=== PATIENT | female | born 1985 | race Caucasian/White ===

== ENCOUNTER 2023-06-19 16:14 | Emergency (ER) | payer BC, SELFPAY ==
[2023-06-19 16:16] VITALS: BP 131/88; PULSE 111; RESP 16; TEMP 36.5; O2SAT 99; BMI 21.9
--- NOTE | 2023-06-19 16:42 | EKG12_ITS ---
Test Reason : Blood Pressure : / mmHG Vent. Rate : 105 BPM Atrial Rate : 105 BPM P-R Int : 150 ms QRS Dur : 080 ms QT Int : 362 ms P-R-T Axes : 061 081 -76 degrees QTc Int : [address] & T wave abnormality, consider inferior ischemia ST & T wave abnormality, consider anterolateral ischemia Abnormal ECG Confirmed by MARCUS PALOMARES, MORGAN ([id number]), deputy editor in chief CLINT SUNSHINE ([id number]) on 06/20/2023 9:47:19 AM Referred By: Confirmed By:MORGAN VELAZQUEZ MD
--- NOTE | 2023-06-19 16:46 | ED.RN ---
per spouse pt started zoloft roughly 3mo ago and did not help. we had a consult and the increased her zoloft and it seemed to help. but when he has pms she gets worse. our marriage has not been good, today we broke up. per pt it was a mutual breakup. after the break up today she became SI.
--- NOTE | 2023-06-19 16:54 | EDS_ITS ---
HPI <NAMAN Molina - Last Filed: 06/19/23 21:06> HPI - Psych History of Present Illness Chief Complaint: Mental Health Narrative Narrative: Patient presenting today due to a suicide attempt that occurred about 30 minutes prior to arrival. She reports that she took 12 Zoloft, 12 ibuprofen, 10 namebrand Zyrtec, and 7 or 8 cetirizine. She reports that she feels a little dizzy and has slight epigastric abdominal pain. She reports that she is from [place] and followed her to the [facility], her is now potentially cheating on her with his ex- and wants to get a divorce. She reports that she has nothing to live for and wants to . Patient began crying and begging, please just let me . She reports a previous suicide attempt when she was 21, she does have a PMH of depression. She denies any substance use or homicidal ideation. PFSH <NAMAN Molina - Last Filed: 06/19/23 21:06> PFSH Medical History Anxiety Depression Home Medications sertraline 100 mg tablet (Zoloft) 100 mg PO DAILY 06/19/23 [History Last Taken Unknown] Allergy/AdvReac Type Severity Reaction Status Date / Time No Known Allergies Allergy Verified 06/19/23 17:05 Family History no significant family his Surgical History H/O breast augmentation History of nasal surgery Social History household members: spouse and children housing: house Smoking Status: Never smoker ROS <NAMAN Molina - Last Filed: 06/19/23 21:06> ROS ED Constitutional Constitutional ED: Denies chills or fever(s) Eyes Eyes: Denies blurry vision Cardiovascular Cardiovascular: Denies chest pain or palpitations Respiratory/Chest Respiratory/Chest: Denies cough or dyspnea Gastrointestinal Gastrointestinal: Reports abdominal pain; Denies nausea or vomiting Musculoskeletal Musculoskeletal: Denies arthralgias or myalgias Integumentary Denies Abrasions or rash Neurologic Neurologic: Denies weakness Psychiatric Psychiatric: Reports depression, hopelessness, suicidal ideation and suicidal thoughts; Denies hallucinations or homicidal ideation EXAM <NAMAN Molina - Last Filed: 06/19/23 21:06> Physical Exam Const Vital Signs: 06/19/23 16:16 06/19/23 17:15 06/19/23 18:00 Temperature 97.7 F L Temperature Source Temporal Pulse Rate 111 H 101 H 64 Respiratory Rate 16 18 14 Blood Pressure 131/88 H 149/92 H 128/78 H Blood Pressure Mean 102 111 94 Pulse Ox 99 100 97 Oxygen Delivery Method Room Air Room Air Positive well nourished, well developed and no apparent distress General Appearance ED: well developed HEENT Reports normocephalic and head/scalp atraumatic Mouth ED: Yes moist mucous membranes normal Eyes PERRL and EOMs intact bilaterally Neck full ROM and supple Chest Wall inspection of chest normal Resp normal respiratory effort and clear to auscultation bilaterally Cardio regular rate and regular rhythm GI soft to palpation, non-tender, non-distended and no masses Back/Spine normal ROM and normal to inspection Extremity normal to inspection and full ROM Neuro oriented x3, CN's II-XII intact bilaterally, moves all extremities, no focal motor deficits and no sensory deficits noted Sensorium / Orientation: awake and alert Psych cooperative, denies hallucinations and denies homicidal ideation Appearance: grossly normal and well kempt Mood & Affect: depressed, sad and tearful Thought Process: normal thought process Thought Content: suicidality Attention / Concentration: attention grossly intact Insight: poor Judgement: poor Skin no rashes or lesions noted and no wounds <Dr. Remington Hess DO - Last Filed: 06/19/23 21:17> Physical Exam Const Vital Signs: 06/19/23 16:16 06/19/23 17:15 06/19/23 18:00 Temperature 97.7 F L Temperature Source Temporal Pulse Rate 111 H 101 H 64 Respiratory Rate 16 18 14 Blood Pressure 131/88 H 149/92 H 128/78 H Blood Pressure Mean 102 111 94 Pulse Ox 99 100 97 Oxygen Delivery Method Room Air Room Air MDM <NAMAN Molina - Last Filed: 06/19/23 21:06> MDM MDM Narrative Medical decision making narrative: Patient presenting due to suicide attempt that occurred this afternoon. She took multiple pills of Zoloft, Zyrtec, and ibuprofen. She is tearful and is making to just let her . She reports she has nothing to live for. She has been fighting with her , she denies feeling unsafe or any abuse in the relationship. Her wants to get a divorce. I did talk with poison control, they recommend administering a dose of activated charcoal which patient is agreeable with. They recommend observation, we will obtain labs and crisis will evaluate patient. Her CBC is unremarkable, BMP shows a potassium of 3.2, creatinine 1.24, salicylate and acetaminophen levels unremarkable. Negative urine toxicology screen. Patient pink slipped, she was evaluated by crisis who recommended placement. This patient was seen with a PA/KNITTING MACHINE OPERATOR AUTOMATIC Individually assessed they patient including history and physical. I have reviewed everything on the chart that is available and agree with the documentation provided by the PA/KNITTING MACHINE OPERATOR AUTOMATIC including discussion about the assessment, treatment plan, discussion, and return precautions. 38-year-old female presenting with suicide attempt. She attempted to ingest 12 Zoloft, 12 ibuprofen, 10 Zyrtec, and 7 or 8 cetirizine. Discussed with poison control and they recommended activated carpal patient was given this. Screening lab work was obtained and patient is medically cleared. hCG negative. Salic ylates negative. Acetaminophen negative. EtOH negative. Drug screen negative. Lab Data Attestation: I reviewed the patient's lab results. Labs: Laboratory Results - last 24 hr 06/19/23 06/19/23 16:44 17:50 WBC 9.6 RBC 4.67 Hgb 14.5 Hct 41.9 MCV 89.7 MCH 31.0 MCHC 34.6 RDW Std Deviation 41.2 RDW Coeff of Geovanna 12.5 Plt Count 324 MPV 10.1 Immature Gran % (Auto) 0.200 Neut % (Auto) 67.4 Lymph % (Auto) 22.9 [place] % (Auto) 8.0 Eos % (Auto) 0.7 Baso % (Auto) 0.8 Absolute Neuts (auto) 6.4 Absolute Lymphs (auto) 2.19 Nucleated RBC % 0 Sodium 138 Potassium 3.2 L Chloride 110 H Carbon Dioxide 19.0 L Anion Gap 9 BUN 10 Creatinine 1.24 H Estim Creat Clear Calc 54.16 Est GFR (MDRD) Af Amer 63 Est GFR (MDRD) Non-Af 52 L BUN/Creatinine Ratio 8.1 L Glucose 100 Calcium 9.5 Serum , Qual NEGATIVE Salicylates < 1.7 L Urine Opiates Screen NEGATIVE Urine Methadone Screen NEGATIVE Acetaminophen < 2.0 L Ur Barbiturates Screen NEGATIVE Ur Phencyclidine Scrn NEGATIVE Ur Amphetamines Screen NEGATIVE MDMA (Ecstasy) Screen NEGATIVE U Benzodiazepines Scrn NEGATIVE Urine Cocaine Screen NEGATIVE U Cannabinoids Screen NEGATIVE Ur Drug Screen Comment Ethyl Alcohol 4.0 <Dr. Remington Hess, DO - Last Filed: 06/19/23 21:17> MDM MDM Narrative Medical decision making narrative: Patient presenting due to suicide attempt that occurred this afternoon. She took multiple pills of Zoloft, Zyrtec, and ibuprofen. She is tearful and is making to just let her . She reports she has nothing to live for. She has been fighting with her , she denies feeling unsafe or any abuse in the relationship. Her wants to get a divorce. I did talk with poison control, they recommend administering a dose of activated charcoal which patient is agreeable with. They recommend observation, we will obtain labs and crisis will evaluate patient. Her CBC is unremarkable, BMP shows a potassium of 3.2, creatinine 1.24, salicylate and acetaminophen levels unremarkable. Negative urine toxicology screen. Patient pink slipped, she was evaluated by crisis who recommended placement. This patient was seen with a PA/KNITTING MACHINE OPERATOR AUTOMATIC Individually assessed they patient including history and physical. I have reviewed everything on the chart that is available and agree with the documentation provided by the PA/KNITTING MACHINE OPERATOR AUTOMATIC including discussion about the assessment, treatment plan, discussion, and return precautions. 38-year-old female presenting with suicide attempt. She attempted to ingest 12 Zoloft, 12 ibuprofen, 10 Zyrtec, and 7 or 8 cetirizine. Discussed with poison control and they recommended activated carpal patient was given this. Screening lab work was obtained and patient is medically cleared. hCG negative. Salicylates negative. Acetaminophen negative. EtOH negative. Drug screen negative. Patient was seen by crisis and will be admitted. [place] slip was filled out. Patient will be transferred when a bed becomes available. Impression: 1. Depression 2. Suicide attempt 3. Drug ingestion Lab Data Labs: Laboratory Results - last 24 hr 06/19/23 06/19/23 16:44 17:50 WBC 9.6 RBC 4.67 Hgb 14.5 Hct 41.9 MCV 89.7 MCH 31.0 MCHC 34.6 RDW Std Deviation 41.2 RDW Coeff of Geovanna 12.5 Plt Count 324 MPV 10.1 Immature Gran % (Auto) 0.200 Neut % (Auto) 67.4 Lymph % (Auto) 22.9 [place] % (Auto) 8.0 Eos % (Auto) 0.7 Baso % (Auto) 0.8 Absolute Neuts (auto) 6.4 Absolute Lymphs (auto) 2.19 Nucleated RBC % 0 Sodium 138 Potassium 3.2 L Chloride 110 H Carbon Dioxide 19.0 L Anion Gap 9 BUN 10 Creatinine 1.24 H Estim Creat Clear Calc 54.16 Est GFR (MDRD) Af Amer 63 Est GFR (MDRD) Non-Af 52 L BUN/Creatinine Ratio 8.1 L Glucose 100 Calcium 9.5 Serum , Qual NEGATIVE Salicylates < 1.7 L Urine Opiates Screen NEGATIVE Urine Methadone Screen NEGATIVE Acetaminophen < 2.0 L Ur Barbiturates Screen NEGATIVE Ur Phencyclidine Scrn NEGATIVE Ur Amphetamines Screen NEGATIVE MDMA (Ecstasy) Screen NEGATIVE U Benzodiazepines Scrn NEGATIVE Urine Cocaine Screen NEGATIVE U Cannabinoids Screen NEGATIVE Ur Drug Screen Comment Ethyl Alcohol 4.0 Discharge Plan Triage Chief Complaint: Mental Health Other Complaint: Suicidal ED Midlevel Provider: Ember Nuñez ED Provider: Remington Hess Dx/Rx/DC Orders Clinical Impression: Suicide attempt by drug overdose, Depressed Prescriptions: No Action sertraline [Zoloft] 100 mg tablet 100 mg PO DAILY Primary Care Provider: Care Physician,No Primary Referrals: Care Physician,No Primary [Primary Care Provider] -
[2023-06-19] MEDS: Activated Charcoal 50 GM/240 ML BOT PO (17:00)
[2023-06-19 17:10] LABS: Absolute Lymphocyte Count 2.19 X10^3/uL (0.83-4.51); Absolute Neutrophil Count 6.4 X10^3/uL (2.0-7.7); Basophil# 0.08 X10^3/uL; Basophil% 0.8 % (0-1); Eosinophil# 0.07 X10^3/uL; Eosinophils% 0.7 % (0-5); Hematocrit 41.9 % (37-47); Hemoglobin 14.5 g/dL (12.0-15.0); Internal QC Validated? YES +Cl - CLEAR BKGD; Lymphocyte # 2.19 X10^3/ul (0.83-4.51); Lymphocyte % 22.9 % (19-41); Mean Corp Hgb Conc 34.6 g/dL (32-36); Mean Corpuscular Volume 89.7 fL (81-99); Mean Platelet Vol. 10.1 fl (6.2-12.0); Monocyte# 0.77 X10^3/uL; NRBC Flagged by Analyzer 0 % (0-5); Neutrophil # 6.44 X10^3/uL (2.7-7.7); Neutrophil % 67.4 % (47-70); Platelet Count 324 K/mm3 (150-450); Pregnancy, Serum, hCG Quali. NEGATIVE Negative; RBC Distribution Width CV 12.5 % (11.6-14.6); RBC Distribution Width SD 41.2 fl (35.1-43.9); Red Blood Count 4.67 M/mm3 (4.2-5.4); White Blood Count 9.6 K/mm3 (4.4-11.0)
[2023-06-19 17:11] LABS: Salicylate < 1.7 mg/dL (2.8-20.0)
[2023-06-19 17:12] LABS: Anion Gap 9 (5-15); BUN 10 mg/dL (7-18); BUN/Creat Ratio 8.1 RATIO (10-20); Calcium,Total 9.5 mg/dL (8.5-10.1); Chloride 110 mmol/L (98-107); Creatinine, Serum 1.24 mg/dL (0.55-1.02); EST Glomerular Filtration Rate 52 mL/min (>60); Est Glom Filt Rate - Afr Amer 63 mL/min (>60); Estimated Creatinine Clearance 54.16 ml/min; Glucose 100 mg/dL (74-106); Potassium 3.2 mmol/L (3.5-5.1); Sodium Level 138 mmol/L (136-145)
[2023-06-19 17:15] VITALS: BP 149/92; PULSE 101; RESP 18; O2SAT 100
--- NOTE | 2023-06-19 17:22 | ED.RN ---
WHILE THIS NURSE WAS DOING HER ASSESSMENT PATIENT STATED HE'S NOT A BACK MAN, HE'S JUST VERY SELFISH. I DON'T WANT TO LIVE IN A WORLD LIKE THIS WHERE I CAN JUST BE TOSSED IN THE TRASH. YOU CAN DO WHAT YOU DO TODAY, BUT I'LL JUST DO THIS AGAIN IN THE MIDDLE OF THE NIGHT SO NO ONE FINDS ME.
[2023-06-19 17:28] LABS: Acetaminophen (Tylenol) Level < 2.0 ug/mL (10.0-30.0)
[2023-06-19 18:00] VITALS: BP 128/78; PULSE 64; RESP 14; O2SAT 97
[2023-06-19 18:08] LABS: Amphetamine Urine VISTA NEGATIVE (<1000 ng/mL); Barbiturate Urine VISTA NEGATIVE (< 200 ng/mL); Benzodiazepine Urine VISTA NEGATIVE (< 200 ng/mL); Cocaine Urine VISTA NEGATIVE (< 300 ng/mL); Ecstacy Urine VISTA NEGATIVE (< 500 ng/mL); Methadone Urine VISTA NEGATIVE (< 300 ng/mL); PCP Urine VISTA NEGATIVE (< 25 ng/mL); THC Urine VISTA NEGATIVE (< 50 ng/mL); Vista UDS pH Range 6
--- NOTE | 2023-06-19 18:15 | ED.RN ---
[facility] CALLED, CHART FAXED. LAUREN FROM [facility] SAID 40 MIN. (APPROX [phone])
[2023-06-19 22:00] VITALS: BP 113/70; PULSE 117; RESP 19; O2SAT 100
[2023-06-19 22:57] LABS: Anion Gap 9 (5-15); BUN 10 mg/dL (7-18); Calcium,Total 8.7 mg/dL (8.5-10.1); Chloride 113 mmol/L (98-107); Creatinine, Serum 1.25 mg/dL (0.55-1.02); EST Glomerular Filtration Rate 51 mL/min (>60); Est Glom Filt Rate - Afr Amer 62 mL/min (>60); Estimated Creatinine Clearance 53.73 ml/min; Glucose 97 mg/dL (74-106); Potassium 3.1 mmol/L (3.5-5.1); Sodium Level 138 mmol/L (136-145)
[2023-06-19] MEDS: 0.9% Normal Saline (1000mL) 1,000 ML 999 ML IV (23:14)
[2023-06-19] MEDS: Potassium Chloride Oral Tablet 20 MEQ 40 MEQ PO (23:14)
--- NOTE | 2023-06-20 00:56 | NURSING ---
Called report to ade mccartney & report given to Elizabeth. Estimated ETA of transport [id number]
[2023-06-20 02:00] VITALS: BP 90/60; PULSE 80; RESP 22; O2SAT 95
[2023-06-20 06:00] VITALS: BP 93/63; PULSE 72; RESP 16; O2SAT 97
[2023-06-20 06:42] VITALS: BP 93/63; PULSE 100; RESP 16; TEMP 36.9; O2SAT 99
== END 2023-06-20 06:47 ==
PROVIDERS: Physician Assistant; Emergency Provider Student in an Organized Health Care Education/Training Program; Visit Provider Student in an Organized Health Care Education/Training Program
DX: T43.222A Poisoning by selective serotonin reuptake inhibitors, intentional self-harm, initial encounter (principal); T45.0X2A Poisoning by antiallergic and antiemetic drugs, intentional self-harm, initial encounter; T39.312A Poisoning by propionic acid derivatives, intentional self-harm, initial encounter; R10.13 Epigastric pain; F32.A Depression, unspecified; F41.9 Anxiety disorder, unspecified; Z79.899 Other long term (current) drug therapy
CPT/HCPCS: 80048; 80307; 80320; 80329; 84703; 85025; 93005; 99285; G0480